=== PATIENT | male | born 1960 | race Caucasian/White ===

== ENCOUNTER 2023-12-01 06:13 | Day surgery (SDC) | payer OTHER, SELFPAY ==
[2023-12-01] VITALS (12 sets, daily range): BP systolic 127–150; BP diastolic 75–94; BMI 28.6
[2023-12-01] MEDS: NSS 279 ML IV (06:50)
[2023-12-01] MEDS: LOW STRENGTH ASPIRIN 324 MG PO (07:16)
[2023-12-01] MEDS: NSS 1000 IV (08:15)
--- NOTE | 2023-12-01 08:22 | ITS.CL.CATH ---
Microbiology Technician - Catheterization
Cardiac Catheterization
Procedure Report:
CARDIAC CATHETERIZATION REPORT
Date of Procedure: 12/01/2023
Referring: Mac Trevino DO
INDICATIONS: Accelerating chest pain syndrome.
HEMODYNAMIC DATA
AO: 121/69/92
LV: 123
LEFT VENTRICULOGRAPHY: Not performed.
CORONARY ANGIOGRAPHY
Dominance: Right
Left Main: The left main is large size and shows minor luminal irregularities.
LAD: The left anterior descending is a large size vessel that wraps the apex serving a large proximal diagonal branch. The diagonal branch has a mid 30 to 40% stenosis. The remainder of the system shows minor luminal irregularities.
Circumflex: The left circumflex is a medium sized, nondominant vessel that there is a small proximal marginal branch, a large lateral marginal branch, and a large inferolateral marginal branch. The entire system shows minor luminal irregularities.
RCA: The right coronary artery is a large sized, dominant vessel that serves a large right ventricular marginal branch serving the distal PDA territory, a medium right PDA, and 2 medium posterolateral branches. There is a mid 30% stenosis and
otherwise entire system shows minor luminal irregularities.
Closure Device: Not applicable. Hemostasis obtained using a radial band without issue.
Radiation (mGy): 582.91
DAP (cm2.Gy): 52.0181
CONCLUSIONS
1: Mild, nonobstructive coronary artery disease.
2: Normal left heart catheterization pressures with no evidence of aortic stenosis.
Copy to: Mac Trevino DO
Ciro Briones MD, FACC
== END 2023-12-01 11:05 | disposition home or self-care (01) ==
LOC: CATH 06:13
PROVIDERS: ATTENDING PHYSICIAN Internal Medicine Interventional Cardiology; FAMILY PHYSICIAN Internal Medicine; OTHER PHYSICIAN Student in an Organized Health Care Education/Training Program
DX: I25.10 Atherosclerotic heart disease of native coronary artery without angina pectoris (principal); R07.9 Chest pain, unspecified; I10 Essential (primary) hypertension; E78.5 Hyperlipidemia, unspecified; Z79.82 Long term (current) use of aspirin
CPT/HCPCS: 93005; 93458; C1894